=== PATIENT | male | born 1985 | race Caucasian/White ===

== ENCOUNTER → 2019-05-08 | Day surgery (SDC) | payer BC ==
[~2019-05-08] MED LIST: Acetaminophen/HYDROcodone 325-5 MG Tab PO SCH; Bupivacaine 0.25% 10 ML SDV ONE; HYDROmorphone 0.5 MG/0.5 ML Syringe IVPUSH PRN; HYDROmorphone 0.5 MG/0.5 ML Syringe ONE; Ketorolac 30 MG/ML SDV ONE; Lactated Ringers 1,000 ML IV SCH; Lactated Ringers 1,000 ML ONE; Lidocaine 1% 4 ML ONE; Lidocaine 1%/Sod Bicarbonate in NS 8.4% 1 ML Syringe IDERM PRN; Midazolam 1 MG/ML 2 ML SDV ONE; Ondansetron 4 MG/2 ML SDV ONE; Propofol 200 MG/20 ML SDV ONE; Sodium Chloride 0.9% 10 ML Syringe FLUSH PRN; ceFAZolin 1 GM Vial ONE; fentaNYL 100 MCG/2 ML SDV IVPUSH PRN; fentaNYL 250 MCG/5 ML SDV ONE
--- NOTE | 2019-05-08 09:36 | PCM.PREANE ---
Preanesthetic Assessment - Anesthesia/Transfusion/Family Hx Anesthesia History: Prior Anesthesia Reaction ("i wake up angry") Family History of Anesthesia Reaction: No Transfusion History: No Prior Transfusion(s) - Review of Systems General: No Symptoms Pulmonary: No Symptoms Cardiovascular: No Symptoms Gastrointestinal: No Symptoms Neurological: No Symptoms Other: Reports: None - Physical Assessment NPO Status Date: 05/08/19 NPO Status Time: 00:00 Vital Signs: Last Vital Signs Temp 36.7 C 05/08/19 08:55 Pulse 78 05/08/19 08:55 Resp 16 05/08/19 08:55 BP 122/81 05/08/19 08:55 Pulse Ox 98 05/08/19 08:55 Height: 1.75 m Weight: 92.079 kg ASA Class: 2 Mental Status: Alert & Oriented x3 Airway Class: Mallampati = 1 Dentition: Reports: Implants (right top) Thyro-Mental Finger Breadths: 3 Mouth Opening Finger Breadths: 3 ROM/Head Extension: Full Lungs: Clear to Auscultation, Normal Respiratory Effort Cardiovascular: Regular Rate, Regular Rhythm - Lab Values: Laboratory Last Values WBC 7.09 K/mm3 (4.23-9.07) 05/02/19 13:30 RBC 5.51 M/mm3 (4.63-6.08) 05/02/19 13:30 Hgb 16.2 gm/L (13.7-17.5) 05/02/19 13:30 Hct 47.5 % (40.1-51.0) 05/02/19 13:30 MCV 86.2 fl (79.0-92.2) 05/02/19 13:30 MCH 29.4 pg (25.7-32.2) 05/02/19 13:30 MCHC 34.1 g/dl (32.2-35.5) 05/02/19 13:30 RDW Std Deviation 41.1 fL (35.1-43.9) 05/02/19 13:30 Plt Count 231 K/mm3 (163-337) 05/02/19 13:30 MPV 10.7 fl (9.4-12.3) 05/02/19 13:30 Sodium 138 mEq/L (136-145) 05/02/19 13:30 Potassium 3.9 mEq/L (3.5-5.1) 05/02/19 13:30 Chloride 99 mEq/L (98-107) 05/02/19 13:30 Carbon Dioxide 26 mEq/L (21-32) 05/02/19 13:30 Anion Gap 16.9 (5-15) H 05/02/19 13:30 BUN 16 mg/dL (7-18) 05/02/19 13:30 Creatinine 1.0 mg/dL (0.7-1.3) 05/02/19 13:30 Est Cr Clr Drug Dosing TNP 05/02/19 13:30 Estimated GFR (MDRD) > 60 mL/min (>60) 05/02/19 13:30 BUN/Creatinine Ratio 16.0 (14-18) 05/02/19 13:30 Glucose 85 mg/dL (74-106) 05/02/19 13:30 Calcium 10.0 mg/dL (8.5-10.1) 05/02/19 13:30 MRSA (PCR) Negative 05/02/19 13:30 - Allergies Allergies/Adverse Reactions: Allergies Allergy/AdvReac Type Severity Reaction Status Date / Time No Known Allergies Allergy Verified 05/07/19 13:46 - Anesthesia Plan Pre-Op Medication Ordered: None - Acknowledgements Anesthesia Type Planned: General Anesthesia Pt an Appropriate Candidate for the Planned Anesthesia: Yes Alternatives and Risks of Anesthesia Discussed w Pt/Guardian: Yes Pt/Guardian Understands and Agrees with Anesthesia Plan: Yes PreAnesthesia Questionnaire Gastrointestinal History: Reports: GERD - Past Surgical History HEENT Surgical History: Reports: Oral Surgery Other HEENT Surgeries/Procedures: wisdom teeth extration - SUBSTANCE USE Smoking Status *Q: Never Smoker Tobacco Use Within Last Twelve Months: Smokeless Tobacco Second Hand Smoke Exposure: No Days Per Week of Alcohol Use: 1 Number of Drinks Per Day: 2 Total Drinks Per Week: 2 Recreational Drug Use History: No - HOME MEDS Home Medications: Home Meds Acetaminophen/HYDROcodone [[place] 325-5 MG] 1 - 2 tab PO Q6H PRN #15 tablet 05/08 [Rx] Aspirin 325 mg PO BID #84 tab 05/08/19 [Rx] - CURRENT (IN HOUSE) MEDS Current Meds: Current Medications Lactated Ringer's (Ringers, Lactated) 1,000 mls @ 125 mls/hr IV ASDIRECTED JOSEPH Stop: 05/08/19 23:00 Last Admin: 05/08/19 09:00 Dose: 125 mls/hr Lidocaine/Sodium Bicarbonate (Buffered Lidocaine 1% In Ns 8.4%) 0.25 ml IDERM ONETIME PRN PRN Reason: Prior to IV Start Stop: 05/08/19 18:00 Last Admin: 05/08/19 09:00 Dose: 0.25 ml Sodium Chloride (Saline Flush) 10 ml FLUSH ASDIRECTED PRN PRN Reason: Keep Vein Open Stop: 05/08/19 18:00
--- NOTE | 2019-05-08 11:53 | PCM.POSTAN ---
POST ANESTHESIA ASSESSMENT - MENTAL STATUS Mental Status: Alert, Oriented - VITAL SIGNS Vital Signs: Last Vital Signs Temp 36.7 C 05/08/19 08:55 Pulse 78 05/08/19 08:55 Resp 16 05/08/19 08:55 BP 122/81 05/08/19 08:55 Pulse Ox 98 05/08/19 08:55 - RESPIRATORY Respiratory Status: Respiratory Rate WNL, Airway Patent, O2 Saturation Stable, Supplemental Oxygen - CARDIOVASCULAR CV Status: Pulse Rate WNL, Blood Pressure Stable - GASTROINTESTINAL GI Status: No Symptoms - PAIN Pain Score: 0 - POST OP HYDRATION Hydration Status: Adequate & Stable - OBSERVATIONS Free Text/Narrative:: no anesthesia complications noted
--- NOTE | 2019-05-08 14:38 | PCM48HPAN ---
Post Anesthesia Note - EVALUATION WITHIN 48HRS OF ANESTHETIC Vital Signs in Normal Range: Yes Patient Participated in Evaluation: Yes Respiratory Function Stable: Yes Airway Patent: Yes Cardiovascular Function Stable: Yes Hydration Status Stable: Yes Pain Control Satisfactory: Yes Nausea and Vomiting Control Satisfactory: Yes Mental Status Recovered: Yes Vital Signs: Last Vital Signs Temp 36.3 C 05/08/19 11:45 Pulse 67 05/08/19 12:30 Resp 16 05/08/19 12:30 BP 110/61 05/08/19 12:30 Pulse Ox 97 05/08/19 12:30
--- NOTE | 2019-05-13 09:37 | PCM.OPNOTE ---
- General Post-Op/Procedure Note Date of Surgery/Procedure: 05/08/19 Operative Procedure(s): left knee prepatellar bursectomy Pre Op Diagnosis: left knee prepatellar bursal mass Post-Op Diagnosis: Same Anesthesia Technique: General LMA, Local Primary Surgeon: Quentin Cain Anesthesia Provider: Darnell Davidson Manager Program: Shanae Walker in mLs: 5 Complications: None Condition: Good
--- NOTE | 2019-05-13 10:14 | OR ---
DATE OF OPERATION: 05/08/2019 SURGEON: Quentin Cain MD OPERATION PERFORMED: Left knee prepatellar bursectomy. PREOPERATIVE DIAGNOSIS: Left knee prepatellar bursal mass. POSTOPERATIVE DIAGNOSIS: Left knee prepatellar bursal mass. ANESTHESIA: General LMA with local. ANESTHESIA PROVIDER: Maxi Dickson. IT OPERATIONS SPECIALIST: Shanae Walker PA-C ESTIMATED BLOOD LOSS: 5 mL. COMPLICATIONS: None. CONDITION: Stable. DESCRIPTION OF PROCEDURE: The patient was identified in the preop holding area. Proper site was marked and identified by surgeon. The patient was taken back to the operating theater where after adequate anesthesia, the patient had a nonsterile tourniquet applied to the left lower extremity. The left lower extremity was then sterilely prepped and draped in the usual sterile fashion. OR time-out was performed. The patient received 2 g IV Ancef. The left lower extremity was then exsanguinated. Tourniquet was insufflated to 250 mmHg. A standard anterior incision was made over the patella in the prepatellar bursa. This was taken down. The patient was noted to have prepatellar bursal fluid and was noted to have loosened bodies noted throughout the prepatellar bursal region. At this time, it was decided we would do a prepatellar bursectomy as he did show significant synovitis with significant bursal hypertrophy. At this time, an excision of the complete bursa was undertaken of the left knee. A curette was then used to roughen the surfaces. Adequate saline was irrigated through the wound. A 2-0 Vicryl was used subcutaneously and Prineo was used for the skin. The patient had a sterile soft dressing applied and was sent to PACU in stable condition. MMODAL /[id number]
== END | disposition home or self-care (01) ==
LOC: JD.SDS 08:44
PROVIDERS: ATTEND Orthopaedic Surgery
DX: M70.52 Other bursitis of knee, left knee (principal); F17.290 Nicotine dependence, other tobacco product, uncomplicated
CPT/HCPCS: 27340; 36415; 80048; 85027; 87641; A9270; J0690; J1170; J1885; J2001; J2250; J2405; J2704; J3010; J3490; J7120; 01320